=== PATIENT | male | born 1985 | race Caucasian/White ===

== ENCOUNTER 2017-11-04 12:05 | Emergency (ER) | payer MEDICARE ==
[~2017-11-04] VITALS: Ht 185.4 cm; Wt 100.0 kg
[~2017-11-04 12:05] MED LIST: AMOXICILLIN/CL875 MG PO; CLARITIN10 M1 PO; FLEXERIL PO; FLONASE NASAL50 MCG; MIRALAX3350 NF PO; MUPIROCIN2 % EX; NO HOME MEDS; NORCO1 TA1 PO; PROMETHAZINE12.5 MG PO; TET/DIP TOX1 ML IM; ULTRAM50 M1 PO; VALTREX1 GM PO
[2017-11-04] MEDS ORDERED: KEFLEX500 M1 PO (12:50)
[2017-11-04 13:20] VITALS: BP 123/81
== END 2017-11-04 13:30 | disposition home or self-care (01) ==
LOC: ED 12:05
DX: S61.212A Laceration without foreign body of right middle finger without damage to nail, initial encounter (principal); S61.214A Laceration without foreign body of right ring finger without damage to nail, initial encounter; W26.8XXA Contact with other sharp object(s), not elsewhere classified, initial encounter; Y93.9 Activity, unspecified; Y92.009 Unspecified place in unspecified non-institutional (private) residence as the place of occurrence of the external cause

== ENCOUNTER 2020-05-31 08:32 | Emergency (ER) | payer MEDICARE ==
[~2020-05-31] VITALS: Ht 185.4 cm; Wt 105.0 kg
[~2020-05-31 08:32] MED LIST changes: +KEFLEX500 M1 PO
[2020-05-31 09:00] LABS: HEMATOCRIT 41.8 % (39.0-50.0); HEMOGLOBIN 14.6 g/dl (14.0-18.0); IMMATURE GRANULOCYTES 0.5 % (0.0-5.0); MEAN CELL VOLUME 88.7 fL CALC (80.0-100.0); MEAN CORPUSCULAR HGB CONC 34.9 g/dL CAL (32.0-36.0); NEUT# 4.94 thou/uL (1.82-7.42); RED BLOOD COUNT 4.71 mill/uL (4.70-6.10); RED CELL DISTRI WIDTH 11.5 % (11.5-15.5)
[2020-05-31 09:19] LABS: ALBUMIN 4.5 g/dL (3.2-5.0); ALKALINE PHOSPHATASE 59 u/l (38-126); ANION GAP 14 (6-22 (CALC)); BUN 14 mg/dL (9-20); BUN/CREATININE RATIO 14 (12-20 (CALC)); CARBON DIOXIDE 24 mmol/l (22-30); CHLORIDE 102 mmol/l (95-108); GFR > 60 ML/MIN (>=60 (CALC)); GFR FOR AFR.AMER. > 60 ML/MIN (>=60 (CALC)); LIPASE 112 u/l (23-300); POTASSIUM 3.8 mmol/l (3.5-5.1); SGOT/AST 38 u/l (17-59); SODIUM 137 mmol/l (137-146); TOTAL PROTEIN 7.6 g/dL (6.3-8.2)
[2020-05-31 09:24] LABS: BILIRUBIN, TOTAL 0.3 mg/dL (0.0-1.4)
[2020-05-31 10:16] VITALS: BP 138/64
[2020-05-31 10:27] LABS: URINE BILIRUBIN - DIPSTICK NEGATIVE (NEGATIVE); URINE BLOOD DIPSTICK NEGATIVE (NEGATIVE); URINE COLOR YELLOW; URINE GLUCOSE - DIPSTICK NEGATIVE (NEGATIVE); URINE KETONE NEGATIVE (NEGATIVE); URINE LEUK ESTERASE NEGATIVE (NEGATIVE); URINE NITRITE - DIPSTICK NEGATIVE (Negative); URINE PROTEIN - DIPSTICK NEGATIVE (NEG-TRACE); URINE SPECIFIC GRAVITY 1.015; URINE UROBILINOGEN - DIPSTICK 0.2 E.U./dL (0.2)
== END 2020-05-31 10:21 | disposition home or self-care (01) ==
LOC: ED 08:32
PROVIDERS: Family Medicine
DX: R07.9 Chest pain, unspecified (principal); F17.200 Nicotine dependence, unspecified, uncomplicated